=== PATIENT | female | born 1960 | race Caucasian/White ===

== ENCOUNTER 2021-11-29 19:11 | Observation (INO) | payer SELFPAY ==
--- NOTE | 2021-11-29 19:49 | RAD REPORT ---
EXAM DESCRIPTION: CT - Ct Stroke Brain Wo Cont - 11/29/2021 7:35 pm CLINICAL HISTORY: Aaltered Speech COMPARISON: <Comparisons> TECHNIQUE: Axial 5 millimeter thick images of the head were obtained without IV contrast. All CT scans are performed using dose optimization technique as appropriate and may include automated exposure control or mA/KV adjustment according to patient size. FINDINGS: No intracranial hemorrhage, mass, or cerebral edema. No acute cortical level infarction id entifiable. No cortical edema or sulcal effacement. No atrophy changes are present. Ventricles are no rmal. Minimal chronic ischemic changes are seen including the left basal ganglia. No extra-axial flui d collections. Gaspar matter-white matter differentiation is preserved.Normal variant perivascular spa ce noted lateral to the left basal ganglia. Visualized portions of the mastoid air cells, paranasal sinuses, and orbits are unremarkable. Findings telephoned Dr. Vallecillo 7:24 p.m. IMPRESSION: No intracranial hemorrhage is present. No focal abnormality seen to localize CVA. Follow-up MR imaging could be performed if there are ongoing concerns for acute CVA.
--- NOTE | 2021-11-29 20:21 | RAD REPORT ---
EXAM DESCRIPTION: RAD - Chest Single View - 11/29/2021 8:05 pm CLINICAL HISTORY: CONGESTION, Stroke protocol chest film COMPARISON: None TECHNIQUE: AP portable chest image was obtained 11/29/2021 8:05 pm . FINDINGS: No acute lung parenchymal process seen. Oval density in the medial right base the appears to have a air-fluid level. This may be part of a hiatal hernia. No failure or volume overload. Heart and vasculature are normal. No measurable pleural effusion and no pneumothorax. No acute bony abnorma lity seen. No acute aortic findings suspected. IMPRESSION: No acute cardiopulmonary process. Nonacute findings detailed in the body the report.
[2021-11-29] MEDS ORDERED: ACETAMINOPHEN 500 MG TAB ONE (20:25)
[2021-11-29] MEDS ORDERED: CEFTRIAXONE 1000 MG/VIAL ONE (20:25)
[2021-11-29 20:30] LABS: Urine Blood Trace-lysed (Negative); Urine Glucose Negative (Negative); Urine Protein 1+ (Negative); Urine Specific Gravity 1.025 (1.005-1.030); Urine pH 5.5 (5.0-7.0)
[2021-11-29 20:33] LABS: Absolute Lymphocytes (CBC) 0.6 K/uL (0.7-4.9); Hematocrit 40.6 % (36.0-45.0); Lymphocytes % 18.8 % (15.3-44.8); MCV 89.5 fL (80-100); MPV 7.4 fL (7.6-11.3); RBC Red Blood Cell Count 4.53 M/uL (3.86-4.86)
[2021-11-29 20:41] LABS: Protime INR 1.18
[2021-11-29 20:48] LABS: Albumin 3.8 g/dL (3.4-5.0); Bilirubin Total 0.4 mg/dL (0.2-1.0); Potassium 3.9 mmol/L (3.5-5.1); Protein, Total 7.7 g/dL (6.4-8.2)
[2021-11-29 21:33] LABS: White Blood Cell Scan OK (OK)
[2021-11-29 21:34] LABS: Blood Morphology Comment NOT SEEN (NOT SEEN); Platelet Estimate ADEQ
--- NOTE | 2021-11-29 21:45 | RAD REPORT ---
EXAM DESCRIPTION: CT - Head angio - 11/29/2021 9:10 pm CLINICAL HISTORY: Aphasia TECHNIQUE: During dynamic enhancement using nonionic IV contrast, axial 1 millimeter thick images of the head were obtained. Sagittal and axial reconstruction images were generated using MIP technique and reviewed. All CT scans are performed using dose optimization technique as appropriate and may include automated exposure control or mA/KV adjustment according to patient size. COMPARISON: CT head same date FINDINGS: No aneurysm or vascular malformation identified. Major venous sinuses are patent. No stenosis, named branch occlusion, vasculitis or other significant vascular finding identifiable. T here is absent right-side P1 [employer] segment with a large right posterior communicating artery. This is n ormal anatomic variation. Anterior communicating artery is present. IMPRESSION: Negative CT angio head examination for acute finding.
[2021-11-29] MEDS ORDERED: NA CHLORIDE 0.9% 1,000 ML ONE (22:00)
[2021-11-29] MEDS ORDERED: ASPIRIN EC 81 MG TAB PO ONE (22:00)
[2021-11-29] MEDS ORDERED: CLOPIDOGREL 75 MG TABLET ONE (22:00)
[2021-11-29] MEDS ORDERED: ATORVASTATIN 20 MG TAB ONE (22:00)
--- NOTE | 2021-11-29 22:48 | EDPHYS ---
Physician Documentation [facility] Name: Clarissa Gonzalez Age: 61 yrs Sex: Female : 1960 Arrival Date: 11/29/2021 Time: 19:13 Bed 24 Private MD: ED Physician Abebe Vallecillo HPI: 11/29 20:00 This 61 yrs old Female presents to ER via Ambulatory with complaints of Difficulty kdr speaking. 20:00 Patient presents to the ED today complaining of difficulty speaking. Last known time of kdr wellness was approximately 1500 today she has not had anything like this before. There has been a generalized flulike illness going around her home. Her and daughter had it in the last few days. relates that he had a similar episode a few days ago with the onset of his flulike illness. He has subsequently resolved. Patient states that she been feeling generally poorly earlier today and had been napping off and on through the day. Approximately 3 PM she spoke with her daughter when at that time symptoms of the difficulty speaking were noted. Patient continues to rest and when the symptoms persisted, her brought her to the ED. She has no other focal neurologic deficits at this time. She denies significant cough or dysuria. She has no other known source at this time. She was not vaccinated for COVID nor has she had any to the booster shots.. Onset: The symptoms/episode began/occurred gradually, today, at 15:00. Severity of symptoms: At their worst the symptoms were mild moderate in the emergency department the symptoms are unchanged. The patient has not experienced similar symptoms in the past. The patient has not recently seen a physician. Historical: - Allergies: 19:22 Sulfa (Sulfonamide Antibiotics); hb - PMHx: 19:22 None; hb - PSHx: 19:22 None; hb - Immunization history:: Adult Immunizations up to date. - Social history:: Smoking status: Patient denies any tobacco usage or history of. ROS: 20:00 Constitutional: Negative for fever, chills, and weight loss, Eyes: Negative for injury, kdr pain, redness, and discharge, ENT: Negative for injury, pain, and discharge, Neck: Negative for injury, pain, and swelling, Cardiovascular: Negative for chest pain, palpitations, and edema, Respiratory: Negative for shortness of breath, cough, wheezing, and pleuritic chest pain, Abdomen/GI: Negative for abdominal pain, nausea, vomiting, diarrhea, and constipation, Back: Negative for injury and pain, : Negative for injury, bleeding, discharge, and swelling, MS/Extremity: Negative for injury and deformity, Skin: Negative for injury, rash, and discoloration, Psych: Negative for depression, anxiety, suicide ideation, homicidal ideation, and hallucinations, Allergy/Immunology: Negative for hives, rash, and allergies, Endocrine: Negative for neck swelling, polydipsia, polyuria, polyphagia, and marked weight changes, Hematologic/Lymphatic: Negative for swollen nodes, abnormal bleeding, and unusual bruising. 20:00 Neuro: Positive for speech changes, weakness. Exam: 20:00 Constitutional: This is a well developed, well nourished patient who is awake, alert, kdr and in no acute distress. Patient is generally able to carry on a conversation without any noted deficits in her speech or mentation. Her does not appreciate any current deficit. Patient does have expressive aphasia when it comes to certain words or phrases. In general however she is able to carry on a normal conversation without any apparent illness Head/Face: Normocephalic, atraumatic. Eyes: Pupils equal round and reactive to light, extra-ocular motions intact. Lids and lashes normal. Conjunctiva and sclera are non-icteric and not injected. Cornea within normal limits. Periorbital areas with no swelling, redness, or edema. Neck: Trachea midline, no thyromegaly or masses palpated, and no cervical lymphadenopathy. Supple, full range of motion without nuchal rigidity, or vertebral point tenderness. No Meningismus. Chest/axilla: Normal chest wall appearance and motion. Nontender with no deformity. No lesions are appreciated. Cardiovascular: Regular rate and rhythm with a normal S1 and S2. No gallops, murmurs, or rubs. Normal PMI, no JVD. No pulse deficits. Respiratory: Lungs have equal breath sounds bilaterally, clear to auscultation and percussion. No rales, rhonchi or wheezes noted. No increased work of breathing, no retractions or nasal flaring. Abdomen/GI: Soft, non-tender, with normal bowel sounds. No distension or tympany. No guarding or rebound. No evidence of tenderness throughout. Back: No spinal tenderness. No costovertebral tenderness. Full range of motion. Skin: Warm, dry with normal turgor. Normal color with no rashes, no lesions, and no evidence of cellulitis. MS/ Extremity: Pulses equal, no cyanosis. Neurovascular intact. Full, normal range of motion. Psych: Awake, alert, with orientation to person, place and time. Behavior, mood, and affect are within normal limits. 20:00 Neuro: Orientation: is normal, Mentation: is normal, responsive to voice lucid, able to follow commands, Cranial nerves: Speech is clear and appropriate. Patient has difficulty forming or expressing certain words however her general speech is normal. Vital Signs: 19:18 BP 119 / 63; Pulse 107; Resp 20; Temp 101.6(TE); Pulse Ox 100% on R/A; Weight 57.61 kg; hb Height 5 ft. 2 in. (157.48 cm); Pain 1/10; 21:58 BP 94 / 52; Pulse 78; Resp 18; Pulse Ox 100% on R/A; bh1 22:22 BP 99 / 56; Pulse 80; Resp 18; Pulse Ox 98% on R/A; bh1 19:18 Body Mass Index 23.23 (57.61 kg, 157.48 cm) hb MDM: 22:47 Patient medically screened. kdr 22:47 Data reviewed: vital signs, nurses notes, lab test result(s), radiologic studies. kdr Counseling: I had a detailed discussion with the patient and/or guardian regarding: the historical points, exam findings, and any diagnostic results supporting the discharge/admit diagnosis, lab results, radiology results, the need for further work-up and treatment in the hospital. 11/29 19:27 Order name: Blood Culture Adult (2) [facility] 11/29 19:27 Order name: CBC with Diff; Complete Time: 22:24 [facility] 11/29 19:27 Order name: CMP; Complete Time: 21:16 [facility] 11/29 19:27 Order name: Lactate; Complete Time: 21:16 [facility] 11/29 19:27 Order name: Protime (+inr); Complete Time: 21:16 [facility] 11/29 19:27 Order name: Ptt, Activated; Complete Time: 21:16 [facility] 11/29 19:28 Order name: Basic Metabolic Panel [facility] 11/29 19:32 Order name: Glucose, Ancillary Testing; Complete Time: 19:58 [facility] 11/29 20:00 Order name: Flu; Complete Time: 21:16 [facility] 11/29 20:01 Order name: SARS-COV-2 RT PCR (Document "Date of Onset" if Symptomatic); Complete Time: wm 22:24 11/29 20:07 Order name: Glucose, Ancillary Testing; Complete Time: 20:10 [facility] 11/29 20:31 Order name: Urine Dipstick-Ancillary; Complete Time: 21:16 [facility] 11/29 21:34 Order name: CBC Smear Scan; Complete Time: 22:24 [facility] 11/30 05:57 Order name: CBC with Automated Diff [facility] 11/29 19:27 Order name: Chest Single View XRAY; Complete Time: 21:16 [facility] 11/29 19:28 Order name: CT Stroke Brain w/o Contrast; Complete Time: 19:58 [facility] 11/29 19:57 Order name: CT Head Angio; Complete Time: 22:24 [facility] 11/30 05:57 Order name: Basic Metabolic Panel [facility] 11/30 05:57 Order name: Lipid Profile [facility] 11/30 05:57 Order name: Magnesium [facility] 11/30 05:57 Order name: Thyroid Stimulating Hormone [facility] 11/30 08:51 Order name: MRI [facility] 11/30 08:55 Order name: MRI [facility] 11/30 09:02 Order name: MRI [facility] 11/29 19:27 Order name: Accucheck; Complete Time: 20:02 [facility] 11/29 19:27 Order name: Cardiac monitoring; Complete Time: 19:41 [facility] 11/29 19:27 Order name: EKG - Nurse/Tech; Complete Time: 19:41 [facility] 11/29 19:27 Order name: IV Saline Lock - Large Bore; Complete Time: 19:41 [facility] 11/29 19:27 Order name: Labs collected and sent; Complete Time: 19:41 [facility] 11/29 19:27 Order name: O2 Per Protocol; Complete Time: 19:41 [facility] 11/29 19:27 Order name: O2 Sat Monitoring; Complete Time: 19:41 [facility] 11/29 19:27 Order name: Urine Dipstick-Ancillary (obtain specimen); Complete Time: 20:24 [facility] 11/29 19:28 Order name: EKG; Complete Time: 19:28 [facility] 11/29 19:28 Order name: IV Saline Lock; Complete Time: 20:02 kdr 11/29 19:28 Order name: NPO; Complete Time: 19:41 kdr 11/29 19:28 Order name: Stroke Swallow Screen; Complete Time: 20:24 kdr Administered Medications: 20:24 Drug: Acetaminophen 1000 mg Route: PO; kd3 20:24 Drug: Rocephin - (cefTRIAXone) 1 grams Route: IVPB; Infused Over: 30 mins; Site: left kd3 antecubital; 22:00 Follow up: IV Status: Completed infusion 1 21:58 Drug: PlaVIX (clopidogrel) 75 mg Route: PO; 1 22:00 Follow up: Response: No adverse reaction 1 21:59 Drug: NS 0.9% 1000 ml Route: IV; Rate: 1 bolus; Site: right antecubital; 1 21:59 Drug: Aspirin 81 mg Route: PO; 1 22:00 Follow up: Response: No adverse reaction 1 21:59 Not Given (low bpp): Atorvastatin 20 mg PO once bh1 22:00 Drug: Atorvastatin 20 mg Route: PO; 1 22:00 Follow up: Response: No adverse reaction [facility] Disposition Summary: 11/29/21 22:47 Hospitalization Ordered Hospitalization Status: Observation kdr Provider: Bryant Floyd kdr Condition: Stable kdr Problem: new kdr Symptoms: have improved kdr Bed/Room Type: Standard kdr Location: [facility] ER HOLD(11/30/21 00:01) cg Room Assignment: ERHOLD-(11/30/21 00:01) cg Diagnosis - Aphasia kdr - SARS-associated coronavirus as the cause of diseases classified elsewhere kdr - Dehydration kdr Forms: - Medication Reconciliation Form kdr - SBAR form kdr Signatures: Dispatcher [employer] EDMO Abebe Vallecillo MD MD kdr Garcia, Cindy, RN RN cg Christine Fabian RN RN hb Doucette, Kyli, RN RN kd3 Amanda Cortes RN RN 1 Corrections: (The following items were deleted from the chart) 19:22 Allergies: No Known Allergies; hb hb 11/30 00:01 11/29 22:47 Telemetry/MedSurg (observation) kdr cg 11/30 00:01 11/29 22:47 kdr cg
--- NOTE | 2021-11-29 22:48 | ER ---
Nurse's Notes [facility] Name: Clarissa Gonzalez Age: 61 yrs Sex: Female : 1960 Arrival Date: 11/29/2021 Time: 19:13 Bed 24 Private MD: Diagnosis: Aphasia;SARS-associated coronavirus as the cause of diseases classified elsewhere;Dehydration Presentation: 11/29 19:18 Chief complaint: Patient states: "I am having word finding problems, I might be having hb a stroke." Also c/o sinus congestion, sore throat, malaise. x 2-3 days. BGL 106. Coronavirus screen: Client presents with at least one sign or symptom that may indicate coronavirus-19. Standard/surgical mask placed on the client. Provider contacted for isolation considerations. Ebola Screen: No symptoms or risks identified at this time. Initial Sepsis Screen: Does the patient meet any 2 criteria? Temp <36.0*C (96.8*F)) or > 38.3*C (100.9*F). HR > 90 bpm. Yes Does the patient have a suspected source of infection?. Risk Assessment: Do you want to hurt yourself or someone else? Patient reports no desire to harm self or others. Onset of symptoms was November 29, 2021. 19:18 Method Of Arrival: Ambulatory hb 19:18 Acuity: AJIT 3 hb Historical: - Allergies: 19:22 Sulfa (Sulfonamide Antibiotics); hb - PMHx: 19:22 None; hb - PSHx: 19:22 None; hb - Immunization history:: Adult Immunizations up to date. - Social history:: Smoking status: Patient denies any tobacco usage or history of. Screenin:57 Abuse screen: Denies threats or abuse. Nutritional screening: No deficits noted. [facility] Tuberculosis screening: No symptoms or risk factors identified. Fall Risk None identified. Assessment: 21:57 Reassessment: No changes from previously documented assessment. Pain: Denies pain. [facility] Vital Signs: 19:18 BP 119 / 63; Pulse 107; Resp 20; Temp 101.6(TE); Pulse Ox 100% on R/A; Weight 57.61 kg; hb Height 5 ft. 2 in. (157.48 cm); Pain 1/10; 21:58 BP 94 / 52; Pulse 78; Resp 18; Pulse Ox 100% on R/A; bh1 22:22 BP 99 / 56; Pulse 80; Resp 18; Pulse Ox 98% on R/A; bh1 19:18 Body Mass Index 23.23 (57.61 kg, 157.48 cm) hb ED Course: 19:13 Patient arrived in ED. jj6 19:22 Triage completed. hb 19:26 Abebe Vallecillo MD is Attending Physician. kdr 19:29 Arm band placed on. hb 19:36 CT Stroke Brain w/o Contrast In Process Unspecified. EDMS 19:41 Amanda Cortes, RN is Primary Nurse. bh1 20:08 Chest Single View XRAY In Process Unspecified. EDMS 20:15 Basic Metabolic Panel Sent. kd3 20:30 SARS-COV-2 RT PCR (Document "Date of Onset" if Symptomatic) Sent. kd3 20:30 Flu Sent. kd3 21:00 Primary Nurse role handed off by Amanda Cortes, RN kd3 21:00 Cornelia Guadalupe, EVA is Primary Nurse. kd3 21:13 CT Head Angio In Process Unspecified. EDMS 21:57 Patient has correct armband on for positive identification. bh1 21:57 No provider procedures requiring assistance completed. Inserted saline lock: 20 gauge 1 in right antecubital area, using aseptic technique. Blood collected. 21:58 No apparent distress. Resting quietly. Awaiting lab results, Awaiting radiology results.bh1 21:58 Inserted saline lock: 20 gauge in left antecubital area, using aseptic technique. bh1 22:22 No apparent distress. Resting quietly. Awaiting bed assignment. bh1 22:46 Bryant Floyd MD is Hospitalizing Provider. kdr Administered Medications: 20:24 Drug: Acetaminophen 1000 mg Route: PO; kd3 20:24 Drug: Rocephin - (cefTRIAXone) 1 grams Route: IVPB; Infused Over: 30 mins; Site: left kd3 antecubital; 22:00 Follow up: IV Status: Completed infusion bh1 21:58 Drug: PlaVIX (clopidogrel) 75 mg Route: PO; bh1 22:00 Follow up: Response: No adverse reaction 1 21:59 Drug: NS 0.9% 1000 ml Route: IV; Rate: 1 bolus; Site: right antecubital; bh1 21:59 Drug: Aspirin 81 mg Route: PO; 1 22:00 Follow up: Response: No adverse reaction 1 21:59 Not Given (low bpp): Atorvastatin 20 mg PO once bh1 22:00 Drug: Atorvastatin 20 mg Route: PO; 1 22:00 Follow up: Response: No adverse reaction [facility] Medication: 21:57 VIS not applicable for this client. [facility] Outcome: 22:47 Decision to Hospitalize by Provider. [facility] 11/30 14:53 Patient left the ED. jd3 Signatures: Dispatcher [employer] EDMS Abebe Vallecillo MD MD kdr Christine Fabian RN RN hb Arthur Amaya RN RN jd3 Sherlyn Mccloud Kyli, RN RN kd3 Amanda Cortes RN RN 1 Corrections: (The following items were deleted from the chart) 11/29 19:22 19:22 Allergies: No Known Allergies; hb hb 19:30 19:18 Initial Sepsis Screen: Does the patient meet any 2 criteria? Yes Does the patient hb have a suspected source of infection? No. Patient's initial sepsis screen is negative. hb
--- NOTE | 2021-11-30 00:06 | P.HP ---
Certification for Inpatient Patient admitted to: Observation With expected LOS: <2 Midnights Patient will require the following post-hospital care: None Practitioner: I am a practitioner with admitting privileges, knowledge of patient current condition, hospital course, and medical plan of care. Services: Services provided to patient in accordance with Admission requirements found in Title 42 Section 412.3 of the Code of Federal Regulations Patient History Date of Service: 11/30/21 Reason for admission: CVA R/O History of Present Illness: Patient is a 61 y/o F who presented to the ED with complaints of expressive aphasia. She reports that she has been feeling under the weather the past 3 days, as well as her family. She noticed today at 1500 that she started having difficulty finding her words. Her and daughter also noticed this and brought her to ED to be evaluated. reports her speech has improved since arrival but it is noted during conversation that patient does have some expressive aphasia but can converse well and is not confused. CT brain and CT head/neck angio negative. Dr. Choi was consulted and wishes for patient to be admitted for observation with MRI stroke protocol in morning. She was given plavix, aspirin, atorvastatin, and folic acid. Patient is admitted for observation. Home medications list reviewed: Yes (NA) - Past Medical/Surgical History Diabetic: No Past Medical History: Patient denies medical history Past Surgical History: Patient denies surgical history Psychosocial/ Personal History: Patient is . - Family History Family History: Reviewed- Non-Contributory - Social History Smoking Status: Never smoker Alcohol use: No CD- Drugs: No Caffeine use: Yes Place of Residence: Home Review of Systems Neurological: Weakness, Change in Speech Physical Examination - Physical Exam General: Alert, In no apparent distress, Oriented x3 HEENT: Atraumatic, PERRLA, EOMI, Sclerae nonicteric Neck: Supple, 2+ carotid pulse no bruit, No LAD, Without JVD or thyroid abnormality Respiratory: Clear to auscultation bilaterally, Normal air movement Cardiovascular: Regular rate/rhythm, Normal S1 S2 Gastrointestinal: Normal bowel sounds, No tenderness Musculoskeletal: No tenderness Integumentary: No rashes Neurological: Normal gait, Normal speech, Normal strength at 5/5 x4 extr, Normal tone, Sensation intact, Normal affect - Studies Laboratory Data (last 24 hrs) 11/29/21 19:55: PT 13.0 H, INR 1.18, APTT 35.7 11/29/21 19:55: Sodium 135 L, Potassium 3.9, BUN 19 H, Creatinine 0.93, Glucose 98, Total Bilirubin 0.4, AST 14 L, ALT 17, Alkaline Phosphatase 72 11/29/21 19:55: WBC 3.0 L, Hgb 13.7, Hct 40.6, Plt Count 162 Microbiology Data (last 24 hrs): 11/29/21 20:23 Nasopharnyx Influenza Type A Antigen Screen - Final 11/29/21 20:23 Nasopharnyx Influenza Type B Antigen Screen - Final Assessment and Plan - Problems (Diagnosis) (1) Expressive aphasia Current Visit: Yes Status: Acute (2) COVID-19 Current Visit: Yes Status: Acute - Plan -MRI stroke protocol ordered for morning -Plavix, aspirin, atorvastatin, folic acid daily -Lipid and TSH pending -Vitamin C and Zinc for COVID-19. Monitor pulse ox -Monitor and replete electrolytes per protocol -Lovenox for VTE ppx -Full code Discharge Plan: Home Plan to discharge in: 24 Hours - Advance Directives Does patient have a Living Will: No Does patient have a Durable POA for Healthcare: No - Code Status/Comfort Care Code Status Assessed: Yes (Full) Critical Care: No Time Spent Managing Pts Care (In Minutes): 50
[2021-11-30 02:41] VITALS: BMI 23.2
[2021-11-30] MEDS ORDERED: ACETAMINOPHEN 500 MG TAB PO PRN (02:51)
[2021-11-30] MEDS ORDERED: BENZONATATE 100 MG CAP PO PRN (02:51)
[2021-11-30] MEDS ORDERED: ONDANSETRON 4 MG/2 ML VIAL IV PRN (02:51)
[2021-11-30 04:44] LABS: Absolute Lymphocytes (CBC) 1.3 K/uL (0.7-4.9); Hematocrit 33.8 % (36.0-45.0); Lymphocytes % 40.5 % (15.3-44.8); MCV 89.1 fL (80-100); MPV 7.2 fL (7.6-11.3); RBC Red Blood Cell Count 3.79 M/uL (3.86-4.86)
[2021-11-30 04:46] LABS: Potassium 3.6 mmol/L (3.5-5.1)
[2021-11-30 04:47] LABS: Magnesium 2.2 mg/dL (1.8-2.4)
[2021-11-30 04:58] LABS: Thyroid Stimulating Hormone 0.208 uIU/mL (0.360-3.740)
--- NOTE | 2021-11-30 08:50 | RAD REPORT ---
EXAM DESCRIPTION: MRI - Brain W/Wo Cont - 11/30/2021 8:33 am CLINICAL HISTORY: EXPRESSIVE APHASIA, CVA COMPARISON: MRA Head Wo Cont dated 11/30/2021, CT head November 29 TECHNIQUE: Sagittal and axial T1-weighted images were obtained. Axial PD/heavily T2-weighted and T2- FLAIR images were obtained along with axial DWI/ADC mapping sequences. Coronal heavily T2 weighted s equence obtained. Axial and coronal post-contrast T1-weighted images were also obtained. A 13 ml Mul tihance contrast following utilized. FINDINGS: No acute infarction is present on the diffusion-weighted imaging. No diffusion signal abno rmalities are present. No hemorrhage, mass or edema. No shift of midline structures. No significant a trophy identified. Ventricles are normal. Rare punctate foci of T2/IR increased signal in the cerebra l white matter is probably early chronic ischemic change. No brainstem, thalamus or basal ganglia sig nal abnormality. Signal voids are seen as a normal finding in the major intracranial vessels. Post-contrast images show normal enhancement. No dural thickening. Mastoid air cells and paranasal sinuses are clear. IMPRESSION: No acute or subacute infarction. No acute MRI brain finding. No atrophy is present. Rare foci of chronic ischemic change seen in the cerebral white matter.
--- NOTE | 2021-11-30 08:55 | RAD REPORT ---
EXAM DESCRIPTION: MRI - MRA Neck W/Wo Cont - 11/30/2021 8:34 am CLINICAL HISTORY: Expressive aphasia COMPARISON: MRI brain same date TECHNIQUE: MR angiography of the cervical vasculature performed. Coronal imaging plane acquisition u tilized. A 13 MultiHance contrast volume was utilized. Coronal reformatted images were generated and reviewed. Vertical axis 3D rotational projections obtained using maximum intensity projection protoco l. FINDINGS: Aortic arch is 3 vessel configuration with no origin stenoses. Left vertebral artery is do minant with no vertebral artery origin stenoses. Vertebral arteries and basilar artery show only minimal tortuosity distally. No focal abnormality see n. Bilateral common carotid arteries unremarkable as well. No left internal carotid artery abnormality s een. There is a short segment band like narrowing at the right common carotid -bulb junction. This is an approximately 40% stenosis when compared with the similar area of the left carotid vasculature. 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 Stenosis is estimated at 40%. Remainder of the study is unremarkable.
[2021-11-30] MEDS ORDERED: ZINC GLUCONATE 50 MG TAB PO SCH (09:00)
[2021-11-30] MEDS ORDERED: CLOPIDOGREL 75 MG TABLET PO SCH (09:00)
[2021-11-30] MEDS ORDERED: ZINC SULFATE 220 MG CAP PO SCH (09:00)
[2021-11-30] MEDS ORDERED: ENOXAPARIN 40 MG/0.4 ML SQ SCH (09:00)
[2021-11-30] MEDS ORDERED: ASPIRIN 81 MG CHEWABLE TABLET PO SCH (09:00)
[2021-11-30] MEDS ORDERED: FOLIC ACID 1 MG TABLET PO SCH (09:00)
--- NOTE | 2021-11-30 09:01 | RAD REPORT ---
EXAM DESCRIPTION: MRI - MRA Head Wo Cont - 11/30/2021 8:33 am CLINICAL HISTORY: Expressive a aphasia COMPARISON: MRI brain same date, CT head November 29 TECHNIQUE: Axial and coronal 3D [id number] image acquisition was performed. 3D rotational images were generated with source and reconstruction images reviewed. Horizontal and vertical axis rotation al views generated using MIP protocol. FINDINGS: Mild tortuosity of the vertebrobasilar vasculature which is otherwise unremarkable. Left p osterior cerebral artery distribution is unremarkable. The right posterior cerebral artery distributi on is supplied by a large right posterior communicating artery. This is a normal anatomic variant. Th e right posterior cerebral artery is not as well visualized. There is some evidence for atherosclerot ic narrowing in the P3 and distal branching. The anterior cerebral and middle cerebral artery distrib utions show no named branch occlusion, vasculitis, stenosis or other significant finding. The distal internal carotid arteries unremarkable as well. IMPRESSION: Small right posterior cerebral artery with areas of luminal narrowing thought to most li anaya be technical in nature. The vessel is supplied by the right posterior communicating artery and t here is probably a low flow rate probably not pathologic but creates defects on MRA imaging. The remainder the examination is unremarkable.
[2021-11-30] MEDS ORDERED: ZINC SULFATE 220 MG CAP ONE (11:18)
[2021-11-30] MEDS ORDERED: ASPIRIN 81 MG CHEWABLE TABLET ONE (11:18)
[2021-11-30] MEDS ORDERED: FOLIC ACID 1 MG TABLET ONE (11:18)
[2021-11-30] MEDS ORDERED: CLOPIDOGREL 75 MG TABLET ONE (11:19)
[2021-11-30] MEDS ORDERED: ENOXAPARIN 40 MG/0.4 ML SQ ONE (11:20)
--- NOTE | 2021-11-30 14:28 | P.SSS ---
Patient History Date of Service: 11/30/21 Reason for admission: CVA R/O, covid 19 dx History of Present Illness: Patient is a 61 y/o F who presented to the ED with complaints of expressive aphasia. She reports that she has been feeling under the weather the past 3 days, as well as her family. She noticed today at 1500 that she started having difficulty finding her words. Her and daughter also noticed this and brought her to ED to be evaluated. reports her speech has improved since arrival but it is noted during conversation that patient does have some expressive aphasia but can converse well and is not confused. CT brain and CT head/neck angio negative. Dr. Choi was consulted and wishes for patient to be admitted for observation with MRI stroke protocol in morning. She was given plavix, aspirin, atorvastatin, and folic acid. Patient is admitted for observation. Allergies Sulfa (Sulfonamide Antibiotics) Allergy (Verified 11/30/21 02:51) Hives/Rash Home Medications: Aspirin Chewable [Aspirin Chewable*] 81 mg PO DAILY 30 Days tab.chew 11/30/21 Atorvastatin Calcium [Lipitor*] 20 mg PO BEDTIME 30 Days #30 tab 11/30/21 Benzonatate [Tessalon Perle*] 100 mg PO TID PRN #21 cap 11/30/21 Zinc Sulfate [Zinc Sulfate*] 220 mg PO DAILY 30 Days #30 cap 11/30/21 - Past Medical/Surgical History Has patient received pneumonia vaccine in the past: No Diabetic: No -: heart surgery at age 3 Psychosocial/ Personal History: Patient is . - Family History Family History: Reviewed- Non-Contributory - Social History Smoking Status: Never smoker Alcohol use: No CD- Drugs: No Caffeine use: Yes Place of Residence: Home Review of Systems General: Weakness, Malaise Eyes: Unremarkable ENT: Unremarkable Respiratory: Unremarkable Cardiovascular: Unremarkable Gastrointestinal: Unremarkable Genitourinary: Unremarkable Musculoskeletal: Unremarkable Integumentary: Unremarkable Neurological: Unremarkable Physical Examination - Vital Signs Temperature: 99 F Blood Pressure: 91/60 Pulse: 72 Respirations: 15 Pulse Ox (%): 95 - Physical Exam General: Alert, Oriented x3 HEENT: Atraumatic, Normocephalic Neck: Supple Cardiovascular: Regular rate/rhythm, Normal S1 S2 Gastrointestinal: Soft and benign Musculoskeletal: No swelling Neurological: Normal speech - Studies Laboratory Data (last 24 hrs) 11/29/21 19:55: PT 13.0 H, INR 1.18, APTT 35.7 11/29/21 19:55: Sodium 135 L, Potassium 3.9, BUN 19 H, Creatinine 0.93, Glucose 98, Total Bilirubin 0.4, AST 14 L, ALT 17, Alkaline Phosphatase 72 11/29/21 19:55: WBC 3.0 L, Hgb 13.7, Hct 40.6, Plt Count 162 Microbiology Data (last 24 hrs): 11/29/21 20:23 Nasopharnyx Influenza Type A Antigen Screen - Final 11/29/21 20:23 Nasopharnyx Influenza Type B Antigen Screen - Final Treatment Summary: He was admitted for suspicion of possible CVA and she had MRI and MRA of the head and neck done. She also had CTA done that showed no significant issues. MRI came back with no acute strokes though she did have some chronic microvascular ischemic changes. Hemorrhoid issue is left-sided but there is a stenosis of the common carotid artery. She was recertified and continued on aspirin, atorvastatin for management of cardiovascular issues and she was also continued on zinc and Mucinex for management of COVID-19 related issue. She reports no worsening shortness of breath, cough, fever, chills, chest pain. She did have some mild loose stool deemed follow-up with primary care doctor on an care of a comorbid condition. - Disposition Disposition: ROUTINE DISCHARGE Condition: GOOD
[2021-11-30 17:19] VITALS: TEMP 101.6
[2021-11-30 17:27] VITALS: BP 99/56; O2SAT 98
[2021-11-30] MEDS ORDERED: ATORVASTATIN 20 MG TAB PO SCH (21:00)
--- NOTE | 2021-12-01 01:58 | CON ---
Reason For Consultation: Consultation called because of possible stroke. History Of Present Illness: Ms. Dowling is a 61-year-old right-handed patient, who comes to [facility] with 2 possible transient ischemic attacks. The patient denies a significant [facility] medical history. She said she was resting, but was not feeling well for about 3 or 4 days leading up to the event. Then, yesterday on around 3 o'clock, she started to get some words and though ts out, but had difficulty actually with the content, but not articulation of her speech. That went on for perhaps about 2 hours and she was brought by family to the emergency department. On her way, she had another episode. The patient believes that also was less than a few hours, and once she was at [facility] and began to have her workup, she resolved completely and denies any additiona l symptoms in terms of face, arm, or leg numbness, weakness, incoordination, loss of speech or balanc e as well. Her workup included a head CT scan, which showed no acute ischemic or hemorrhagic changes . Her subsequent brain MRI ruled out the presence of an acute ischemic or hemorrhagic stroke. The s tudy showed rare punctate T2 IR increased signal in the cerebral white matter from chronic small-vess el disease. Magnetic resonance angiogram of her brain showed a small right posterior cerebral artery with areas of luminal narrowing throughout, most likely noted to be a technical issue per the radiol ogist. A vessel supplied by the right posterior communicating artery not likely to show us significa nt pathology. The head CT angiogram was unremarkable. There was an absent right P1 posterior commun icating artery with a large right posterior communicating artery. This was felt to be a normal anato melanie variant and anterior communicating artery is present. Magnetic resonance angiogram of the neck i dentified short-segment bandlike narrowing of the right common carotid bulb estimated at 40%. Otherw ise, the study was unremarkable. Blood work showed essentially unremarkable complete blood count wit h differential except a slightly low white blood cell count. Coagulation panel was unremarkable. He r total cholesterol was 167, LDL cholesterol 93, and HDL 67. TSH was low at 0.208. Liver function s tudies unremarkable. Urinalysis shows trace lysed blood, 3+ ketones, 1+ protein. COVID-19 test was positive. Her chest x-ray showed no acute cardiopulmonary processes. She denies fever or cough, but under the weather. However, while at [facility], she did have a fever spike to 101.6. She did receive a gram of Rocephin in the emergency room, but has not been treated with Paxlovid. She i s on 20 mg statin at bedtime along with aspirin 81 mg daily, Plavix 75 mg daily, and folic acid 1 mg daily. Past Medical History: As noted. Surgical History: Atrial septal defect at age 3 and left shoulder surgery in 2017. Social History: Denies tobacco use, but she drinks about 2 drinks a week, these are mixed drinks. N o IV drugs. Family History: Noncontributory. Medications: She was not taking medications regularly at home. Review of Systems: As noted, she was feeling under the weather, but denies any cough or fever. Physical Examination: Vital Signs: Blood pressure 119/63, pulse of 107, temperature 101.6, and oxygen saturation 100%. We ight 127 pounds, height 5 feet 2 inches. General: Ms. Gonzalez is resting in the emergency room. She is in no significant distress. HEENT: She appears normocephalic and atraumatic. Sclerae are anicteric. Oropharynx is moist and pi nk. Neck: Supple. Chest: Clear. Heart: Regular. Extremities: Show no significant clubbing, cyanosis, or edema. Neurological: She is alert and oriented to person, place, and situation. No expressive or receptive aphasias. Cranial nerves 2 through 12 intact. Motor examination, normal strength in upper and lowe r extremities. Coordination intact in lower extremities. Reflexes 1+ in the upper and lower extremi ties. Gait intact with good stance, right arm swing. Assessment: Ms. Gonzalez is a 61-year-old patient, who is COVID positive and had 2 apparent transient ischemic attacks and expressive aphasia. Her brain MRI is unremarkable for any acute ischemic or hem orrhagic change. She has anatomical variance in terms of her vasculature in the brain and 40% stenos is in the right common carotid artery. Plans: 1.She perhaps should have received Paxlovid. 2.Aspirin, Plavix, folic acid, and statin as indicated. 3.She may isolate until 5 days from the positive test and should potentially have a retest of COVID. 4.The patient may follow up in Dr. Keating' clinic 1 month later. ARANZA Voice ID: [id number] Report ID: [id number]
== END 2021-11-30 14:50 | disposition home or self-care (01) ==
LOC: ER 19:11 → ERHOLD 23:57
PROVIDERS: ADMIT Internal Medicine Nephrology; ATTEND Internal Medicine Nephrology
DX: R47.01 Aphasia (principal); U07.1 COVID-19; E86.0 Dehydration; I65.21 Occlusion and stenosis of right carotid artery; Q21.1 Atrial septal defect; Z88.2 Allergy status to sulfonamides
CPT/HCPCS: 36415; 70450; 70496; 70544; 70549; 70553; 71045; 80048; 80053; 80061; 81003; 82947; 83605; 83735; 84443; 85025; 85610; 85730; 87040; 87804; A9577; G0378; J1650; J7030; Q9967; U0003